=== PATIENT | female | born 1980 | race Caucasian/White ===

== ENCOUNTER 2017-02-04 09:12 | Inpatient (IN) | payer BC ==
[~2017-02-04] VITALS: Ht 165.1 cm; Wt 79.4 kg
[~2017-02-04 09:12] MED LIST: ENDOCET 5-3251 EACH PO; IBUPROFEN800 MG PO; PRENATAL TABLE1 EAC3 PO
[2017-02-04 09:47] VITALS: BP 99/64
[2017-02-04 10:50] VITALS: BP 109/74
== END 2017-02-04 14:00 | disposition home or self-care (01) | DRG 782 ==
LOC: LDRP-OP 09:12 → 2WEST 09:13 → LDRP-OP 03-22 15:53
PROC: 10S0XZZ Reposition Products of Conception, External Approach (ICD-10-PCS; principal; 2017-02-04)
DX: O32.1XX1 Maternal care for breech presentation, fetus 1 (principal); Z3A.37 37 weeks gestation of pregnancy; O09.523 Supervision of elderly multigravida, third trimester
CPT/HCPCS: 59025

== ENCOUNTER 2017-02-20 02:06 | Inpatient (IN) | payer BC ==
[~2017-02-20] VITALS: Ht 165.1 cm; Wt 80.0 kg
[2017-02-20] VITALS (10 sets, daily range): BP systolic 115–134; BP diastolic 63–87
[2017-02-20 03:12] LABS: HEMATOCRIT 37.3 % (36.0-46.0); MCH 31.1 PG (29.0-34.0); MCHC 35.4 G/DL (30.0-36.0); MCV 87.8 FL (83-99); RBC DIS.WIDTH-CV 13.2 % (11.8-14.6); RBC DIS.WIDTH-SD 42.5 % (39-53); RED BLOOD COUNT 4.25 M/uL (3.80-5.20); WHITE BLOOD COUNT 7.9 K/uL (4.1-10.2)
[2017-02-20] MEDS ORDERED: MOTRIN800 MG PO (03:39)
[2017-02-20 03:55] LABS: MEAN PLAT.VOLUME 11.9 uM^3 (9.5-12.4); PLAT.SUFFICIENCY ADEQUATE; PLATELET COUNT 169 K/uL (156-360)
[2017-02-21 07:06] VITALS: BP 114/79
[2017-02-21 15:02] VITALS: BP 125/86
[2017-02-21 22:37] VITALS: BP 109/63
[2017-02-22 07:51] VITALS: BP 114/65
== END 2017-02-22 12:00 | disposition home or self-care (01) | DRG 775 ==
LOC: LDRP-OP 02:06 → 2WEST 02:07
PROVIDERS: Obstetrics & Gynecology
PROC: 0KQM0ZZ Repair Perineum Muscle, Open Approach (ICD-10-PCS; principal; 2017-02-20)
PROC: 10907ZC Drainage of Amniotic Fluid, Therapeutic from Products of Conception, Via Natural or Artificial Opening (ICD-10-PCS; principal; 2017-02-20)
PROC: 10E0XZZ Delivery of Products of Conception, External Approach (ICD-10-PCS; principal; 2017-02-20)
DX: O70.1 Second degree perineal laceration during delivery (principal); Z3A.40 40 weeks gestation of pregnancy; Z37.0 Single live birth
CPT/HCPCS: 85027; J7120